=== PATIENT | male | born 1970 | race Caucasian/White ===

== ENCOUNTER 2020-11-20 20:16 | Inpatient (IN) | payer MEDICARE, OTHER ==
[~2020-11-20] VITALS: Ht 165.1 cm; Wt 69.9 kg
[2020-11-20 20:30] VITALS: BP 150/75
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
[2020-11-20] MEDS ORDERED: MAGNESIUM HYDROXIDE 30 ML UDC PO PRN (21:00)
[2020-11-20] MEDS ORDERED: BLOOD SUGAR DIAGNOSTIC 1 EACH STRIP IN ONE (21:00)
[2020-11-20] MEDS ORDERED: MAG HYDROX/AL HYDROX/SIMETH 30 ML UDC PO PRN (21:00)
[2020-11-20] MEDS: ACETAMINOPHEN 325 MG TABLET PO PRN (22:31)
[2020-11-20] MEDS: TEMAZEPAM 7.5 MG CAPSULE PO PRN (23:41)
[2020-11-21] MEDS ORDERED: DIVA250T PO (05:05)
[2020-11-21] MEDS ORDERED: HALO5TAB PO (05:05)
[2020-11-21] MEDS ORDERED: QUET200T PO ×2 (05:05→07:51)
[2020-11-21] MEDS: LORAZEPAM 0.5 MG TABLET PO PRN (05:30)
[2020-11-21 07:38] LABS: CHOLESTEROL 226 mg/dL (<200); HDL CHOLESTEROL 66 mg/dL (40-60); LDL 145 mg/dL (0-99); TRIGLYCERIDES 111 mg/dL (30-150)
[2020-11-21 07:40] LABS: ALBUMIN 3.4 g/dL (3.4-5.0); BILIRUBIN,TOTAL 0.5 mg/dL (0.2-1.0); CALCIUM, SERUM 8.7 mg/dL (8.5-10.1); CREATININE 0.7 mg/dL (0.6-1.3); TOTAL PROTEIN, SERUM 6.8 g/dL (6.4-8.2)
[2020-11-21] MEDS ORDERED: HALO5TAB8 PO (07:51)
[2020-11-21] MEDS ORDERED: DIVA250T47 PO (07:51)
[2020-11-21 08:00] VITALS: BP 105/52
[2020-11-21] MEDS ORDERED: QUET200T84 PO (08:11)
[2020-11-21] MEDS: ACETAMINOPHEN 325 MG TABLET PO PRN (13:58)
--- NOTE | 2020-11-21 13:58 | NUR ---
PATIENT SAYS HE FORGOT TO TELL ATTENDING ABOUT HIS HEADACHES. DESIRES TREATMENT. ETHEL DARDEN RN
[2020-11-21 16:00] VITALS: BP 101/51
--- NOTE | 2020-11-21 16:43 | NUR ---
Initial D/C Plan: Per pt. he was last residing at [[address] [facility] [address]; [phone]] with his sister, Jenny Mayfield [phone]. Per pt. he doesn't want to be discharged to a long term and would rather go live with his sister if she will take him back. SW will continue to collaborate with IDT to ensure safe & proper D/C planning.
[2020-11-21] MEDS ORDERED: QUETIAPINE FUMARATE 100 MG TABLET PO SCH (17:00)
[2020-11-21] MEDS: DIVALPROEX SODIUM 250 MG TABLET.DR PO SCH (17:49)
[2020-11-21] MEDS: TRAZODONE 50 MG TABLET PO SCH (21:06)
[2020-11-21] MEDS: QUETIAPINE FUMARATE 100 MG TABLET PO SCH (21:06)
[2020-11-21 21:10] VITALS: BP 110/47
[2020-11-22 08:00] VITALS: BP 95/57
[2020-11-22] MEDS: QUETIAPINE FUMARATE 100 MG TABLET PO SCH ×2 (08:23→21:33)
[2020-11-22] MEDS: DIVALPROEX SODIUM 250 MG TABLET.DR PO SCH ×3 (08:29→16:19)
--- NOTE | 2020-11-22 11:26 | NUR ---
Point of Contact: Pt. gave SW verbal consent to speak to his sister, Jenny Mayfield [phone] to gather collateral information. However, call went to voicemail and SW left call back number. SW will be available as needed.
[2020-11-22 16:00] VITALS: BP 101/54
--- NOTE | 2020-11-22 19:56 | NUR ---
GPS RN NOTE, RECEIVED PATIENT AWAKE AND IN BED, NO S/S OR COMPLAINTS OF PAIN AT THIS TIME. PATIENT IS DISPLAYING NO S/S OF APPARENT DISTRESS AT THIS TIME. PATIENT BREATHING IS UNLABORED WITH EQUAL RISE AND FALL OF THE CHEST. PATIENT IS ALERT AND ORIENTED X 3 ON ROOM AIR WITH A SPO2 97%. PATIENT IS COMPLIANT WITH MEDICATIONS, ANXIOUS AT TIMES, ISOLATES IN ROOM, AND IS COOPERATIVE. PATIENT DENIES SUICIDAL AND HOMICIDAL IDEATIONS AT THIS TIME. PATIENT ASSISTED WITH TURNING AND REPOSITIONING Q2HR AND PRN FOR COMFORT AND CIRCULATION. PATIENT HAS NO NEEDS AT THIS TIME. PATIENT EDUCATED ON THE USE OF THE CALL LIGHT. PATIENT BED SIDE RAILS UP X 2 FOR SAFETY. PATIENT BED IS LOCKED, LOW, WITH BED ALARM ON. WILL CONTINUE TO MONITOR THIS PATIENT Q15 MINUTES WITH THE HELP OF STAFF TO MAINTAIN SAFETY.
[2020-11-22 20:00] VITALS: BP 132/73
[2020-11-22] MEDS: TRAZODONE 50 MG TABLET PO SCH (21:33)
[2020-11-23 08:00] VITALS: BP 109/58
[2020-11-23] MEDS: DIVALPROEX SODIUM 250 MG TABLET.DR PO SCH ×3 (08:11→16:22)
[2020-11-23] MEDS: QUETIAPINE FUMARATE 100 MG TABLET PO SCH ×2 (08:11→21:23)
[2020-11-23 16:00] VITALS: BP 101/59
[2020-11-23] MEDS: ACETAMINOPHEN 325 MG TABLET PO PRN (17:45)
[2020-11-23 20:00] VITALS: BP 103/58
[2020-11-23] MEDS: TRAZODONE 50 MG TABLET PO SCH (21:23)
[2020-11-24 08:00] VITALS: BP 103/57
[2020-11-24] MEDS: DIVALPROEX SODIUM 250 MG TABLET.DR PO SCH ×3 (09:13→16:44)
[2020-11-24] MEDS: QUETIAPINE FUMARATE 100 MG TABLET PO SCH ×2 (09:13→21:40)
[2020-11-24 16:00] VITALS: BP 102/60
[2020-11-24] MEDS: LORAZEPAM 0.5 MG TABLET PO PRN (19:39)
[2020-11-24 20:00] VITALS: BP 113/66
[2020-11-24] MEDS: TRAZODONE 50 MG TABLET PO SCH (21:40)
[2020-11-25 08:00] VITALS: BP 100/62
[2020-11-25] MEDS: NICOTINE PATCH (14MG) 14 MG PATCH.TD24 TD SCH (08:41)
[2020-11-25] MEDS: QUETIAPINE FUMARATE 100 MG TABLET PO SCH ×2 (08:41→23:39)
[2020-11-25] MEDS: DIVALPROEX SODIUM 250 MG TABLET.DR PO SCH ×3 (08:41→18:05)
[2020-11-25 15:55] VITALS: BP 113/71
[2020-11-25 20:00] VITALS: BP 109/64
--- NOTE | 2020-11-25 21:30 | NUR ---
OMNICELL SYSTEM IS DOWN, UNABLE TO PULL OUT MEDICATIONS. CHAIN OF COMMAND INITIATED. NURSING NECK BAND MAKER NOTIFIED. OMNICELL 24HOUR HELP DESK NOTIFIED, AWAITING DISPATCH TIP CUTTER.
[2020-11-25] MEDS: TRAZODONE 50 MG TABLET PO SCH (23:39)
[2020-11-25] MEDS: ACETAMINOPHEN 325 MG TABLET PO PRN (23:45)
--- NOTE | 2020-11-25 23:46 | NUR ---
RN NOTE pt c/o BREWER 08/14 requests tylenol, administered prn as ordered will cont to monitor.
--- NOTE | 2020-11-26 00:35 | NUR ---
pharmacy, [facility] notified regarding lack of access for medications, all medications given
[2020-11-26 08:00] VITALS: BP 105/57
[2020-11-26] MEDS: DIVALPROEX SODIUM 250 MG TABLET.DR PO SCH ×3 (09:58→17:36)
[2020-11-26] MEDS: QUETIAPINE FUMARATE 100 MG TABLET PO SCH ×2 (09:58→22:23)
[2020-11-26] MEDS: NICOTINE PATCH (14MG) 14 MG PATCH.TD24 TD SCH (09:58)
--- NOTE | 2020-11-26 11:10 | NUR ---
Family Contact: SW called the pts sister, Jenny Mayfield ([phone]), and left a voicemail stating that the SW wanted a call back to discuss the pts treatment.
--- NOTE | 2020-11-26 14:25 | NUR ---
SNF Referral: NOE faxed a referral to [facility] with attn to Annamaria to the fax number: [phone].
[2020-11-26 16:00] VITALS: BP 87/45
[2020-11-26] MEDS: ACETAMINOPHEN 325 MG TABLET PO PRN (17:59)
--- NOTE | 2020-11-26 18:28 | NUR ---
given tylenol for headache.
[2020-11-26 20:00] VITALS: BP 100/56
[2020-11-26] MEDS: TEMAZEPAM 7.5 MG CAPSULE PO PRN (22:23)
[2020-11-26] MEDS: TRAZODONE 50 MG TABLET PO SCH (22:23)
[2020-11-27 08:00] VITALS: BP 102/59
[2020-11-27] MEDS: DIVALPROEX SODIUM 250 MG TABLET.DR PO SCH ×3 (09:19→17:14)
[2020-11-27] MEDS: QUETIAPINE FUMARATE 100 MG TABLET PO SCH ×2 (09:19→21:07)
[2020-11-27] MEDS: NICOTINE PATCH (14MG) 14 MG PATCH.TD24 TD SCH (09:20)
[2020-11-27 16:00] VITALS: BP 116/64
[2020-11-27] MEDS: ACETAMINOPHEN 325 MG TABLET PO PRN (16:30)
[2020-11-27 20:19] VITALS: BP 106/66
[2020-11-27] MEDS: TRAZODONE 50 MG TABLET PO SCH (21:08)
[2020-11-28 08:00] VITALS: BP 111/67
[2020-11-28] MEDS: QUETIAPINE FUMARATE 100 MG TABLET PO SCH ×2 (08:40→21:04)
[2020-11-28] MEDS: NICOTINE PATCH (14MG) 14 MG PATCH.TD24 TD SCH (08:40)
[2020-11-28] MEDS: DIVALPROEX SODIUM 250 MG TABLET.DR PO SCH ×3 (08:40→16:08)
[2020-11-28 16:00] VITALS: BP 103/57
[2020-11-28 19:44] VITALS: BP 112/58
[2020-11-28] MEDS: TRAZODONE 50 MG TABLET PO SCH (21:04)
[2020-11-29 08:00] VITALS: BP 137/57
[2020-11-29] MEDS: NICOTINE PATCH (14MG) 14 MG PATCH.TD24 TD SCH (08:25)
[2020-11-29] MEDS: DIVALPROEX SODIUM 250 MG TABLET.DR PO SCH ×3 (08:25→17:21)
[2020-11-29] MEDS: QUETIAPINE FUMARATE 100 MG TABLET PO SCH ×2 (08:26→22:03)
[2020-11-29] MEDS: ACETAMINOPHEN 325 MG TABLET PO PRN ×2 (09:14→18:28)
--- NOTE | 2020-11-29 12:21 | NUR ---
SNF Contact: Annamaria ([phone]) from [facility] contacted the SW and stated that the pt was accepted to their facility.
--- NOTE | 2020-11-29 15:35 | NUR ---
Family Contact: SW called the pts sister, Jenny Mayfield ([phone]), and left a voicemail stating that the SW wanted a call back to discuss the pts treatment.
[2020-11-29 16:00] VITALS: BP 114/65
--- NOTE | 2020-11-29 19:30 | NUR ---
GPS RN NOTE, RECEIVED PATIENT AWAKE AND IN BED, PATIENT HAS COMPLAINT OF A HEADACHE AT 4 OUT 10 ON THE PAIN SCALE AT THIS TIME. PATIENT IS BEING TREATED WITH PAIN MEDICATION FOR THIS PAIN. PATIENT IS DISPLAYING NO S/S OF APPARENT DISTRESS AT THIS TIME. PATIENT BREATHING IS UNLABORED WITH EQUAL RISE AND FALL OF THE CHEST. PATIENT IS ALERT AND ORIENTED X 3 ON ROOM AIR WITH A SPO2 94%. PATIENT IS COMPLIANT WITH MEDICATIONS, MAKES NEEDS KNOWN, ISOLATES IN ROOM, AND IS COOPERATIVE. PATIENT DENIES SUICIDAL AND HOMICIDAL IDEATIONS AT THIS TIME. PATIENT ASSISTED WITH TURNING AND REPOSITIONING Q2HR AND PRN FOR COMFORT AND CIRCULATION. PATIENT HAS NO NEEDS AT THIS TIME. PATIENT EDUCATED ON THE USE OF THE CALL LIGHT. PATIENT BED SIDE RAILS UP X 2 FOR SAFETY. PATIENT BED IS LOCKED, LOW, WITH BED ALARM ON. WILL CONTINUE TO MONITOR THIS PATIENT Q15 MINUTES WITH THE HELP OF STAFF TO MAINTAIN SAFETY.
--- NOTE | 2020-11-29 20:25 | NUR ---
GPS RN NOTE, PATIENT HAS A COMPLAINT OF A HEADACHE AT 8 OUT 10 ON THE PAIN SCALE AND IS REQUESTING MEDICATION STRONGER THAN TYLENOL. PAGED [facility] AND INFORMED DR PATEL OF MY FINDINGS. DR PATEL ORDERED NORCO 5-325 Q6HR PRN FOR MODERATE PAIN. ALL ORDERS NOTED AND CARRIED OUT. WILL CONTINUE TO MONITOR THIS PATIENT WITH THE HELP OF STAFF.
[2020-11-29 20:42] VITALS: BP 125/77
[2020-11-29] MEDS: HYDROCODONE/APAP 5/325MG TABLET PO PRN (20:55)
--- NOTE | 2020-11-29 20:56 | NUR ---
GPS RN NOTE, PATIENT HAS A COMPLAINT OF A HEADACHE AT 8 OUT 10 ON THE PAIN SCALE AND IS REQUESTING NORCO AT THIS TIME. PATIENT VITAL SIGNS ARE STABLE. GAVE NORCO 5-325 1 TAB PO Q6HR PRN ORDERED. WILL REASSESS FOR PAIN WILL CONTINUE TO MONITOR THIS PATIENT WITH THE HELP OF STAFF.
[2020-11-29] MEDS: TRAZODONE 50 MG TABLET PO SCH (22:03)
[2020-11-30 08:00] VITALS: BP 99/62
[2020-11-30] MEDS: QUETIAPINE FUMARATE 100 MG TABLET PO SCH ×2 (08:22→22:35)
[2020-11-30] MEDS: DIVALPROEX SODIUM 250 MG TABLET.DR PO SCH ×3 (08:22→17:15)
[2020-11-30] MEDS: NICOTINE PATCH (14MG) 14 MG PATCH.TD24 TD SCH (08:22)
[2020-11-30] MEDS: HYDROCODONE/APAP 5/325MG TABLET PO PRN ×3 (08:27→22:37)
--- NOTE | 2020-11-30 08:27 | NUR ---
RN-CO: NORCO GIVEN FOR PAIN 7/10 FOR HEADACHE.
[2020-11-30 16:00] VITALS: BP 108/53
--- NOTE | 2020-11-30 19:15 | NUR ---
RN OPENING NOTE PATIENT IN BED, EYES CLOSED. EASILY AWAKENED. PATIENT IS CALM AND COOPERATIVE. PATIENT STATES THAT HE "FEELS BETTER AND I'M EXCITED TO GO HOME". DOES NOT COMPLAIN OF ANY PAIN OR DISCOMFORT AT THIS TIME. PATIENT IS AMBULATORY AND INDEPENDENT. SAFETY MEASURES IN PLACE: BED IN LOCKED AND LOWEST POSITION, SIDE RAILS UP. WILL MONITOR PATIENT CLOSELY.
--- NOTE | 2020-11-30 20:00 | NUR ---
PATIENT'S SISTER AJAY'S NUMBER IS [phone].
[2020-11-30 20:20] VITALS: BP 112/64
[2020-11-30] MEDS: TRAZODONE 50 MG TABLET PO SCH (22:36)
--- NOTE | 2020-11-30 22:37 | NUR ---
NORCO GIVEN FOR HEADACHE 7/10 ON THE PAIN SCALE. WILL REASSESS PAIN.
--- NOTE | 2020-12-01 06:51 | NUR ---
RN CLOSING NOTE PATIENT SEEN WITH EYES CLOSED, EASILY AROUSED. STABLE AT THIS TIME, NO COMPLAINS OF PAIN OR DISCOMFORT. NO SIGNIFICANT CHANGES THROUGHOUT THE SHIFT. BREATHING EVEN AND UNLABORED. PATIENT WAS MED COMPLIANT AND COOPERATIVE. ALL NEEDS MET AND ATTENDED. ALL ORDERS CARRIED OUT. PAIN MANAGED. WILL ENDORSE TO DAY SHIFT NURSE FOR CORNELIO.
[2020-12-01 08:00] VITALS: BP 93/52
[2020-12-01 08:01] LABS: CALCIUM, SERUM 8.9 mg/dL (8.5-10.1); CREATININE 0.7 mg/dL (0.6-1.3); POTASSIUM 4.3 mmol/L (3.5-5.1)
[2020-12-01] MEDS: DIVALPROEX SODIUM 250 MG TABLET.DR PO SCH ×3 (08:49→16:42)
[2020-12-01] MEDS: HYDROCODONE/APAP 5/325MG TABLET PO PRN ×4 (08:49→22:46)
[2020-12-01] MEDS: QUETIAPINE FUMARATE 100 MG TABLET PO SCH ×2 (08:49→21:10)
[2020-12-01] MEDS: NICOTINE PATCH (14MG) 14 MG PATCH.TD24 TD SCH (08:49)
[2020-12-01 16:00] VITALS: BP 101/56
[2020-12-01 20:31] VITALS: BP 95/52
[2020-12-01] MEDS: TRAZODONE 50 MG TABLET PO SCH (21:47)
[2020-12-02] MEDS: HYDROCODONE/APAP 5/325MG TABLET PO PRN ×2 (01:40→18:05)
[2020-12-02 08:00] VITALS: BP 98/60
[2020-12-02] MEDS: NICOTINE PATCH (14MG) 14 MG PATCH.TD24 TD SCH (08:58)
[2020-12-02] MEDS: QUETIAPINE FUMARATE 100 MG TABLET PO SCH ×2 (08:58→22:12)
[2020-12-02] MEDS: DIVALPROEX SODIUM 250 MG TABLET.DR PO SCH ×3 (08:58→17:10)
--- NOTE | 2020-12-02 14:23 | NUR ---
Family Contact: SW called the pts sister, Jenny Mayfield ([phone]), and left a voicemail stating that the SW wanted a call back to discuss the pts treatment.
--- NOTE | 2020-12-02 14:23 | NUR ---
SNF Contact: NOE contacted Annamaria ([phone]) from [facility] and stated that the pt is going to be discharged tomorrow.
[2020-12-02 16:00] VITALS: BP 110/50
[2020-12-02 20:00] VITALS: BP 97/56
[2020-12-02] MEDS: TRAZODONE 50 MG TABLET PO SCH (22:12)
[2020-12-03 08:00] VITALS: BP 108/52
--- NOTE | 2020-12-03 08:00 | NUR ---
received pt. in am alert and oriented x3.no acute distress.
[2020-12-03] MEDS: QUETIAPINE FUMARATE 100 MG TABLET PO SCH (10:05)
[2020-12-03] MEDS: NICOTINE PATCH (14MG) 14 MG PATCH.TD24 TD SCH (10:05)
[2020-12-03] MEDS: DIVALPROEX SODIUM 250 MG TABLET.DR PO SCH ×2 (10:05→13:42)
--- NOTE | 2020-12-03 10:05 | NUR ---
Family Contact: SW called the pts sister, Jenny Mayfield ([phone]), and left a voicemail stating that the SW wanted a call back to discuss the pts discharge
--- NOTE | 2020-12-03 13:25 | NUR ---
Family Contact: SW received a call from the pts nephew, Daniel ([phone]), who stated that the pt called him and that he had the pts sister also on the line. SW explained where the pt is going to be discharged too and the family stated that they prefer this discharge plan to him coming home because they do not feel that they are ready to take care of him again in this state.
--- NOTE | 2020-12-03 13:30 | NUR ---
Discharge Note: Pt will be discharged to [facility] ([facility]) located at [address], [place] [address]; . Pt will be transported via [facility] at 2PM. Upon discharge, the pt appears to be alert and oriented x3 (time, place, and self). Pt appears to be in a depressed mood and presents with a calm mood. Pt denies both suicidal and homicidal ideation as well as auditory and visual hallucinations. Pt appears to be ambulatory with an unsteady gait. Pt appears to be well groomed and appropriately dressed. Pt will continue to be under the care of his psychiatrist, Dr. Gibbs, located at [address] [place] [id number]; and neurosurgical nurse practitioner, Dr. Ignacio, located at [address], [place] [address]; . The choice of vendor form and multidisciplinary exit care form were done, printed, signed, and given to the patient.
--- NOTE | 2020-12-03 13:38 | NUR ---
RN NOTE: REPORT GIVEN TO KARON CROOKS AT [facility].
--- NOTE | 2020-12-03 14:15 | NUR ---
a little disgruntled.does not like location of transfer facility.director of professional services,rn and social service talking to pt.all belongings packed up. report to trailer truck driver.taken via ambulance to snf.
== END 2020-12-03 14:30 | DRG 885 ==
LOC: GPS 20:16
PROVIDERS: ADMIT Psychiatry & Neurology Psychiatry; ATTEND Internal Medicine
DX: F31.64 Bipolar disorder, current episode mixed, severe, with psychotic features (principal); R45.851 Suicidal ideations; F29 Unspecified psychosis not due to a substance or known physiological condition; F41.9 Anxiety disorder, unspecified; F19.11 Other psychoactive substance abuse, in remission; Z87.820 Personal history of traumatic brain injury; F17.210 Nicotine dependence, cigarettes, uncomplicated; Z73.6 Limitation of activities due to disability; Z91.5 Personal history of self-harm
CPT/HCPCS: 36415; 80048-TC; 80053-TC; 80061-TC; 80164-TC; 82962-TC; 87081-TC; 97112-TC; 97116-TC; 97530-TC